=== PATIENT | male | born 1995 | race Caucasian/White ===

== ENCOUNTER 2019-07-14 20:59 | Emergency (ER) | payer OTHER, SELFPAY ==
[2019-07-14 21:06] VITALS: BP 138/87; PULSE 114; RESP 18; TEMP 36.6; O2SAT 98; BMI 23.8
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
[2019-07-14] MEDS: TET,DIPH,PERTUSS(ACELL),VAC/PF 0.5 ML SYRINGE IM (21:36)
[2019-07-14] MEDS: LIDOCAINE 1% W/EPI 1 ML SUBCUT (21:56)
--- NOTE | 2019-07-14 22:56 | PC.NURSE ---
patient held a damp cloth on his head and face for a half hour to help release the dried blood. Multiple wet cloths used to clean all the dried blood off head and face. Laceration is approximately 8cm and very jagged. with 2 2cm splits medially up and down from the laceration. One liter of normal saline hung at bedside with the end removed for irrigation. Provider irrigated wound removing dirt and small rocks. 700ml NS used to irrigate. Provider placed 15 stitches with 3.0 nylon, tails left long so next provider can identify sutures easily for removal. Bacitracin, telfa and kerlex applied.
[2019-07-14] MEDS: BACITRACIN OINT 0.9 GM PCKT 1 APPLIC TOP (23:09)
[2019-07-14] MEDS: cephALEXin 250 MG CAPSULE 500 MG PO (23:09)
[2019-07-14 23:19] VITALS: BP 114/68; PULSE 64; RESP 14; O2SAT 99
== END 2019-07-14 23:19 | disposition home or self-care (01) ==
PROVIDERS: Emergency Provider Emergency Medicine
DX: S01.01XA Laceration without foreign body of scalp, initial encounter (principal); S60.511A Abrasion of right hand, initial encounter; S40.811A Abrasion of right upper arm, initial encounter; V20.0XXA Motorcycle driver injured in collision with pedestrian or animal in nontraffic accident, initial encounter; Y92.414 Local residential or business street as the place of occurrence of the external cause; Z23 Encounter for immunization
CPT/HCPCS: 12004; 90471; 99283; 90715

== ENCOUNTER 2019-07-16 12:44 | Emergency (ER) | payer OTHER, SELFPAY ==
[2019-07-16 12:53] VITALS: BP 123/69; PULSE 79; RESP 16; O2SAT 100
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
== END 2019-07-16 13:15 | disposition home or self-care (01) ==
PROVIDERS: Emergency Provider Emergency Medicine
DX: S01.01XD Laceration without foreign body of scalp, subsequent encounter (principal)
CPT/HCPCS: 99281

== ENCOUNTER → 2021-03-03 13:53 | Outpatient (CLI) | payer OTHER, SELFPAY ==
[2021-03-03 16:37] LABS: COVID19 -Nasal RAPID Negative (Negative)
== END ==
PROVIDERS: Visit Provider Nurse Practitioner Family
DX: Z20.822 Contact with and (suspected) exposure to COVID-19 (principal); J02.9 Acute pharyngitis, unspecified; R50.9 Fever, unspecified
CPT/HCPCS: 87635

== ENCOUNTER → 2021-03-04 16:45 | Outpatient (CLI) | payer OTHER, SELFPAY | PROVIDERS: Referring Provider Nurse Practitioner Family; Visit Provider Nurse Practitioner Family | DX: J02.9 Acute pharyngitis, unspecified (principal) | CPT/HCPCS: 87070 ==

== ENCOUNTER → 2022-02-12 14:59 | Outpatient (CLI) | payer OTHER, SELFPAY | PROVIDERS: Visit Provider Nurse Practitioner Family | DX: J02.9 Acute pharyngitis, unspecified (principal) | CPT/HCPCS: 87070 ==

== ENCOUNTER → 2022-04-25 18:41 | Outpatient (ROUT) | payer OTHER, SELFPAY ==
[2022-04-25 20:15] LABS: Urine N gonorrhoeae NOT DETECTED
[2022-04-25 20:17] LABS: Urine Chlamydia DETECTED
== END ==
PROVIDERS: Visit Provider Physician Assistant
DX: R36.9 Urethral discharge, unspecified (principal)
CPT/HCPCS: 87491; 87591

== ENCOUNTER 2023-06-10 19:04 | Emergency (ER) | payer SELFPAY ==
[2023-06-10 19:13] VITALS: BP 162/93; PULSE 95; RESP 20; TEMP 36.6; O2SAT 98; BMI 24.7
--- NOTE | 2023-06-10 19:18 | DI.RAD.S_ITS ---
PROCEDURE: XR SHOULDER LT MIN 2V INDICATIONS: Fall / dislocation TECHNIQUE: 2 views of the shoulder were acquired. COMPARISON: None. FINDINGS: Bones: Anterior/inferior dislocation of the glenohumeral joint. Soft tissues: No suspicious soft tissue calcifications. IMPRESSION: Anterior/inferior dislocation of the glenohumeral joint. Dictated by: Rebel Cooper M.D. on 06/10/2023 at 19:48 Approved by: Rebel Cooper M.D. on 06/10/2023 at 19:49
--- NOTE | 2023-06-10 19:48 | ED.GENADULT ---
HPI - General Adult General Chief complaint: Extremity Injury, Upper Stated complaint: lt shoulder dislocation Time Seen by Provider: 06/10/23 19:15 Source: patient Mode of arrival: Ambulatory History of Present Illness HPI narrative: Patient is a 28-year-old male. Has had multiple left shoulder dislocations over the past several years. He states that today he was snowboarding and dislocated his shoulder. Normal he states he can get it back in on his own but he tried his normal mechanisms and has been unsuccessful. No other injuries from the event. Related Data Previous Rx's Medication Instructions Recorded doxycycline hyclate 100 mg capsule 100 mg PO BID #14 caps 04/26/22 triamcinolone acetonide 0.1 % 1 applic topical BID dermatitis 03/07/23 topical cream #30 grams Allergies Allergy/AdvReac Type Severity Reaction Status Date / Time No Known Drug Allergies Allergy Verified 06/10/23 19:18 Review of Systems Constitutional Constitutional: Reports system reviewed and no additional complaints, except as documented Musculoskeletal Musculoskeletal: Reports system reviewed and no additional complaints, except as documented Integumentary/Breasts Skin/Breast: Reports system reviewed and no additional complaints, except as documented Neurologic Neurologic: Reports system reviewed and no additional complaints, except as documented Patient History Medical History STI (sexually transmitted infection) Healthy adult Social History lives independently: Yes Smoking Status: Former smoker Smoking Status: Former smoker alcohol intake frequency: 0-2 drinks per day Substance Use Type: marijuana Exam Initial Vital Signs Initial Vital Signs: Vital Signs Temperature 97.8 F 06/10/23 19:13 Pulse Rate 95 H 06/10/23 19:13 Respiratory Rate 20 06/10/23 19:13 Blood Pressure 162/93 H 06/10/23 19:13 Pulse Oximetry 98 06/10/23 19:13 Oxygen Delivery Method Room Air 06/10/23 19:13 Cardio Pulses: radial pulses present on the left Skin General: no rashes or lesions noted Neuro Other: Sensation intact to the left hand and the lateral aspect of the left shoulder Extrem Other: Obvious deformity and discomfort to the left shoulder. His left elbow left wrist unremarkable Procedures Orthopedic Splinting/Casting Injury #1: Side: left Upper Extremity Injury Location: shoulder Upper Extremity Immobilizer: sling/shoulder immobilizer Post splinting neuro exam: intact Post splinting vascular exam: intact Placed by: Nursing Procedural Sedation Consent signed: Yes Indication: fracture/dislocation reduction ASA Class: I Mallampati Airway Classification: Class I Preparation: campus monitor applied, pulse oximeter, capnometry used, supplemental O2 applied, suction/airway equipment at bedside and IV secured IV Propofol dose (mg): 100 Intraservice time/total sedation time (min): 10 ED Sedation Level: Minimal Patient Tolerated Procedure: Well and No complications Course Orders Ordered: ED Orders 06/10/23 19:18 XR shoulder LT min 2V Stat 06/10/23 20:20 XR shoulder LT min 2V Stat Discontinued Medications Hydromorphone HCl (Hydromorphone 1 Mg Inj) 1 mg IM NOW ONE Stop: 06/10/23 19:48 Last Admin: 06/10/23 20:42 Dose: Not Given Documented By: SAMANTHA Propofol (Propofol 200 Mg/20 Ml Vial) 100 mg IV NOW ONE Stop: 06/10/23 19:48 Last Admin: 06/10/23 20:11 Dose: 100 mg Documented By: SAMANTHA Vital Signs Vital signs: Vital Signs - 8 hr 06/10/23 19:13 Temperature 97.8 F Pulse Rate 95 H Respiratory Rate 20 Blood Pressure 162/93 H Pulse Oximetry 98 Oxygen Delivery Method Room Air Medical Decision Making Imaging Data Extremity x-ray #1: Radiologist's Impression: PROCEDURE: XR SHOULDER LT MIN 2V INDICATIONS: Fall / dislocation TECHNIQUE: 2 views of the shoulder were acquired. COMPARISON: None. FINDINGS: Bones: Anterior/inferior dislocation of the glenohumeral joint. Soft tissues: No suspicious soft tissue calcifications. IMPRESSION: Anterior/inferior dislocation of the glenohumeral joint. Extremity x-ray #2: Radiologist's Impression: PROCEDURE: XR SHOULDER LT MIN 2V INDICATIONS: post reduction TECHNIQUE: 2 views of the shoulder were acquired. COMPARISON: [facility], , XR SHOULDER LT MIN 2V, 06/10/2023, 19:34. FINDINGS: Bones: Glenohumeral joint has been reduced. No conspicuous fracture. No suspicious bony lesions. Visualized ribs appear intact. Soft tissues: No suspicious soft tissue calcifications. IMPRESSION: Left shoulder joint has been reduced. No conspicuous fracture. [facility] Narrative Medical decision making narrative: X-ray showed anterior dislocation left shoulder. He was given propofol. He was awake during the entire procedure but was sedated to the point that we could easily reduce his shoulder. Follow-up x-ray shows reduction. He was placed in a sling. He was advised that given the amount of times that he is dislocated following up with Orthopedic surgery would be reasonable. Patient expressed understanding and agreement with plan. Discharge Plan Departure Patient Disposition: Home Clinical Impression: Dislocated shoulder Instructions: DI for Shoulder Dislocation Prescriptions: No Action triamcinolone acetonide 0.1 % cream 1 applic topical BID Qty: 30 0RF doxycycline hyclate 100 mg capsule 100 mg PO BID Qty: 14 0RF Referrals: Cordell Le MD [Physician] - Miscellaneous,MD Óscar [Primary Care Provider] - Stand Alone Forms: Patient Portal/API
[2023-06-10] MEDS: propofoL 200 MG/20 ML VIAL 100 MG IV (20:11)
[2023-06-10 20:18] VITALS: PULSE 78
--- NOTE | 2023-06-10 20:20 | DI.RAD.S_ITS ---
PROCEDURE: XR SHOULDER LT MIN 2V INDICATIONS: post reduction TECHNIQUE: 2 views of the shoulder were acquired. COMPARISON: [facility], CR, XR SHOULDER LT MIN 2V, 06/10/2023, 19:34. FINDINGS: Bones: Glenohumeral joint has been reduced. No conspicuous fracture. No suspicious bony lesions. Visualized ribs appear intact. Soft tissues: No suspicious soft tissue calcifications. IMPRESSION: Left shoulder joint has been reduced. No conspicuous fracture. Dictated by: Abhishek Barnett M.D. on 06/10/2023 at 21:08 Approved by: Abhishek Barnett M.D. on 06/10/2023 at 21:09
[2023-06-10 20:24] VITALS: PULSE 80; RESP 18; O2SAT 97
[2023-06-10 21:21] VITALS: BP 116/56; PULSE 79; O2SAT 97
== END 2023-06-10 21:25 | disposition home or self-care (01) ==
PROVIDERS: Emergency Provider Emergency Medicine
DX: S43.005A Unspecified dislocation of left shoulder joint, initial encounter (principal); Y93.23 Activity, snow (alpine) (downhill) skiing, snowboarding, sledding, tobogganing and snow tubing
CPT/HCPCS: 23650; 36415; 73030; 99152; 99284; 99285; J2704